=== PATIENT | female | born 1970 | race Caucasian/White ===

== ENCOUNTER 2018-10-30 11:48 | Day surgery (SDC) | payer MEDICARE, MEDICAID ==
--- NOTE | 2018-10-30 07:02 | History and Physical - [facility]ro ---
CHIEF COMPLAINT/HISTORY OF CHIEF COMPLAINT: This patient presents with a history of a post cervical laminectomy radiculopathy. Due to the failure of all therapies, a spinal cord stimulator trial with a Nevro system was performed by Dr. Thompson Che with 75+% pain control. Due to the failure of other therapies and the success of the trial, the patient is being referred to this facility for permanent implant. PAST MEDICAL HISTORY: Headaches, seizure disorder, chronic obstructive pulmonary disease, reflux esophagitis, depression and difficulty sleeping. PAST SURGICAL HISTORY: Extensive including cervical spinal surgeries. EMPLOYMENT STATUS: Disability. MEDICATIONS ON ADMISSION: List to be provided. ALLERGIES: List to be provided. FAMILY/PSYCHOSOCIAL HISTORY: Social history - Noncontributory. Family history - Thyroid disease, asthma, diabetes, coronary artery disease and hypertension. SYSTEMS REVIEW: The patient seems appropriate in no acute distress. PHYSICAL EXAMINATION: Height is 5'9", weight is 200 pounds. No vital signs. HEENT: Within normal limits. LUNGS: Clear. HEART: Rapid and regular. ABDOMEN: Nontender. MUSCULOSKELETAL: Examination of the musculoskeletal system shows diffuse tenderness throughout the cervical spine extending into the trapezius, suprascapular, deltoid and medial rhomboideus muscle groups. There is an upper extremity component somewhat more prominent left than right across multiple distributions and dermatomes. There is pain extending towards the back side of the head consistent with the occipital distribution. Sensory jenkins are intact. NEUROLOGIC: Cranial nerves are intact. IMPRESSION: POST CERVICAL LAMINECTOMY SYNDROME, ICD-10 CODE M96.1 WITH CERVICAL RADICULOPATHY, ICD-10 CODE M54.12. PLAN: The patient is here for an implanted permanent spinal cord stimulator after a successful trial and the failure of all other therapies. The procedure will be considered outpatient although an overnight stay will be evaluated. The potential risks, side effect and complications have all been carefully reviewed and discussed. JOB NUMBER: [id number] [facility]
[~2018-10-30 11:48] MED LIST: ACETAMINOPHEN 1,000 MG/100 ML BTL IV ONE; CEFAZOLIN 2 Gram 2 GM/50 ML BAG IVPB ONE; FAMOTIDINE 20MG TABLET PO ONE; MECLIZINE 25 MG TABLET PO ONE; METOCLOPRAMIDE 10 MG TABLET PO ONE
[2018-10-30] MEDS ORDERED: 0.9 % SODIUM CHLORIDE 10 ML VIAL IVP ONE (11:49)
[2018-10-30] MEDS ORDERED: LIDOCAINE 2% MDV (20MG/ML) 20ML VIAL IV ONE (11:49)
[2018-10-30] MEDS ORDERED: FENTANYL PF 100MCG/2ML VIAL IV ONE (11:49)
[2018-10-30] MEDS ORDERED: CLINDAMYCIN 600MG/50ML PREMIX 600 MG/50 ML BAG IVPB ONE (11:49)
[2018-10-30] MEDS ORDERED: MIDAZOLAM HCL 2MG/2ML VIAL IV ONE (11:49)
[2018-10-30] MEDS ORDERED: CEFAZOLIN 1G VIAL IM ONE (11:49)
[2018-10-30] MEDS ORDERED: HYDROMORPHONE HCL 2 MG/ML VIAL IV ONE (11:49)
[2018-10-30] MEDS ORDERED: PROPOFOL 10 MG/ML VIAL IV ONE (11:49)
[2018-10-30] MEDS ORDERED: BUPIVACAINE 0.5% W/EPI MPF 30 ML VIAL SQ ONE (14:15)
[2018-10-30] MEDS ORDERED: LIDOCAINE 1% W/EPI 1:200,000 MPF 30ML SQ ONE (14:16)
[2018-10-30] MEDS ORDERED: RINGERS SOLUTION,LACTATED 150 ML IV ONE (14:41)
[2018-10-30] MEDS ORDERED: METOCLOPRAMIDE HCL 10 MG/2 ML VIAL IVP PRN (15:17)
[2018-10-30] MEDS ORDERED: DIPHENHYDRAMINE HCL 50 MG/ML VIAL IVP PRN ×2 (15:17)
[2018-10-30] MEDS ORDERED: SENNOSIDES/DOCUSATE SODIUM UD CAPSULE PO PRN ×2 (15:17)
[2018-10-30] MEDS ORDERED: TEMAZEPAM 15 MG CAPSULE PO PRN ×2 (15:17)
[2018-10-30] MEDS ORDERED: OXYCODONE/APAP 10MG-325MG TABLET PO PRN (15:17)
[2018-10-30] MEDS ORDERED: HYDROMORPHONE HCL 2 MG/ML VIAL IM PRN (15:17)
[2018-10-30] MEDS ORDERED: AL HYDROX/MAG HYDROX 30ML UD PO PRN (15:17)
[2018-10-30] MEDS ORDERED: DIPHENHYDRAMINE HCL 25 MG CAPSULE PO PRN ×2 (15:17)
[2018-10-30] MEDS ORDERED: METOCLOPRAMIDE 10 MG TABLET PO PRN (15:17)
[2018-10-30] MEDS ORDERED: HYDROCODONE/APAP 7.5/325MG TABLET PO PRN ×2 (15:17)
[2018-10-30] MEDS ORDERED: ACETAMINOPHEN 325 MG TAB PO PRN ×2 (15:17)
[2018-10-30] MEDS: LORAZEPAM 0.5 MG TABLET PO SCH ×2 (16:37→22:18)
[2018-10-30] MEDS: OXYCODONE/APAP 10MG-325MG TABLET PO PRN (21:19)
[2018-10-30] MEDS: CLINDAMYCIN 600MG/50ML PREMIX 600 MG/50 ML BAG IVPB SCH (21:36)
[2018-10-30] MEDS ORDERED: GABAPENTIN 300 MG CAPSULE PO SCH (22:00)
[2018-10-30] MEDS ORDERED: GABAPENTIN 100 MG CAPSULE PO SCH (22:00)
[2018-10-30] MEDS ORDERED: LAMOTRIGINE 100 MG TABLET PO SCH (22:00)
[2018-10-30] MEDS ORDERED: 0.9 % SODIUM CHLORIDE 10ML SYR IVP SCH (22:00)
[2018-10-30] MEDS ORDERED: DULOXETINE HCL 30 MG CAPSULE.DR PO SCH (22:00)
[2018-10-30] MEDS: LITHIUM CARBONATE 300 MG PO SCH (22:16)
[2018-10-30] MEDS: TOPIRAMATE 100MG TABLET PO SCH (22:17)
[2018-10-30] MEDS: HYDROMORPHONE HCL 2 MG/ML VIAL IM PRN (22:57)
[2018-10-31] MEDS: OXYCODONE/APAP 10MG-325MG TABLET PO PRN ×3 (03:30→11:22)
[2018-10-31] MEDS: HYDROMORPHONE HCL 2 MG/ML VIAL IM PRN (04:23)
[2018-10-31] MEDS: CLINDAMYCIN 600MG/50ML PREMIX 600 MG/50 ML BAG IVPB SCH (04:27)
[2018-10-31] MEDS: LORAZEPAM 0.5 MG TABLET PO SCH (09:51)
[2018-10-31] MEDS: LITHIUM CARBONATE 300 MG PO SCH (09:52)
[2018-10-31] MEDS: TOPIRAMATE 100MG TABLET PO SCH (09:52)
[2018-10-31] MEDS ORDERED: LAMOTRIGINE 100 MG TABLET PO SCH (10:00)
--- NOTE | 2018-10-31 20:55 | Operative Note ---
DATE OF SURGERY: 10/30/2018 PREOPERATIVE DIAGNOSES: POST CERVICAL LAMINECTOMY SYNDROME, ICD-10 CODE = M96.1 WITH CERVICAL RADICULOPATHY, ICD-10 CODE = M54.12. POSTOPERATIVE DIAGNOSES: POST CERVICAL LAMINECTOMY SYNDROME, ICD-10 CODE = M96.1 WITH CERVICAL RADICULOPATHY, ICD-10 CODE = M54.12. SURGERY: 1. FLUOROSCOPIC-GUIDED EPIDURAL ACCESS LEFT T1-2, PLACEMENT OF SPINAL CORD STIMULATOR LEAD 1, A NEVRO OCTOAPOLAR 8 ELECTRODE LEAD POSITIONED LEFT OF THE MIDLINE C2. 2. FLUOROSCOPIC-GUIDED EPIDURAL ACCESS LEFT T2-3, PLACEMENT OF SPINAL CORD STIMULATOR LEAD 2, A NEVRO OCTAPOLAR 8 ELECTRODES POSITIONED RIGHT C3. 3. INCISION, SUBCUTANEOUS DISSECTION, AND ANCHORING OF LEAD 1 AND LEAD 2 TO SUPRASPINOUS FASCIA USING A NEVRO LOCKING ANCHOR AND NONABSORBABLE SUTURE. 4. INCISION, SUBCUTANEOUS DISSECTION, AND CREATION OF SUBCUTANEOUS POUCH AT RIGHT POSTERIOR GLUTEAL MARGIN FOR PLACEMENT OF GENERATOR IDENTIFIED NEVRO PROGRAMMABLE, RECHARGEABLE. 5. TUNNELING OF LEAD 1 AND LEAD 2 INTO GENERATOR POUCH, EACH LEAD INTERFACED WITH THE GENERATOR, PLACEMENT OF LEADS INTO POUCH. CLOSURE OF BOTH INCISIONS USING STRATAFIX SUTURE, #2-0 FASCIA AND #3-0 SKIN, DERMABOND CLOSURE. 6. COMPLEX RECOVERY ROOM PROGRAMMING INTERNAL GENERATOR HOME USE, TWO STIMULATORS, 20 MINUTES. SURGEON: MICHELLE BEE D.O. PRIMARY PHYSICIANS: DR. MODESTA CHE, DR. TEOFILO LILLY ANESTHESIA: LOCAL SEDATION. ANESTHESIA PROVIDER: GANGA RAPP CRNA. INDICATIONS: This patient presents with a history of an intractable post cervical laminectomy radiculopathy. Due to the failure of all therapies, a spinal cord stimulator trial was conducted by Dr. Modesta Che with 75%+ pain control. Due to the failure of therapies and the success of the trial, she has been referred here for a permanent implant. SURGERY: Intravenous line, vital sign monitoring, IV sedation by Anesthesia, patient positioned prone. Sterile prep. Sterile technique. The epidural interspace at T1-2 and T2-3 were marked, skin infiltrated. Using standard epidural needles with loss of resistance, the space was accessed. Atraumatic, no blood, no CSF. At T1-2, spinal cord stimulator lead 1, a Nevro Octapolar 8 electrode was advanced slightly left of the midline, upper electrodes at the upper endplate C2. With the access at T2-3, same technique, spinal cord stimulator lead 2, also a Nevro Octapolar 8 electrodes was advanced slightly right of the midline positioned to offset with the upper electrode at the upper endplate C3. The skin above and below both needles was infiltrated, incision made, and subcutaneous dissection was conducted to the supraspinous fascia. The needles were removed and then each lead was anchored to the supraspinous fascia with a Nevro locking anchor and nonabsorbable suture. At the right posterior gluteal margin, a site picked by the patient for the generator, skin infiltrated , incision made, and subcutaneous dissection was conducted to form a pouch of suitable size and depth for the generator, a Nevro programmable, rechargeable. A tunneling tool was then used to carry the leads into the generator pouch and each each lead was interfaced with the generator. Antibiotic irrigation and Bovie for hemostasis. The generator was placed into the pouch. The leads were placed into their own pouch and then both incisions were closed using STRATAFIX suture, #2-0 fascia and #3-0 skin. Dermabond closure approximating the edges of both wounds. She was transported to the Recovery Room stable, no side effects from the procedure or the sedation. When fully awake and alert in the Recovery Room, complex programming was performed reestablishing stimulation She will be kept overnight for observation because of the distance to drive and will be discharged in the morning. DISCHARGE INSTRUCTIONS: 1. The sites will remain clean and dry. The Dermabond will allow showering. She should not sit in water, no tubs, but she can shower. 2. Standard medications will be resumed including the antibiotic, Levaquin. She will take 500 mg once a day for 14 days. 3. The office will contact the patient in the next 24 to 48 hours to set up a time in 7 to 10 days for us to see the sites. Until then, she is to keep her activities controlled. All other instructions provided, numbers to contact if problems given. She will be discharged in the morning. cc: Dr. Jeremiah Che and Dr. Teofilo Lilly JOB NUMBER: [id number] MTDD
--- NOTE | 2018-11-01 09:46 | RADIOLOGY REPORT ---
EXAM: CERVICOTHORACIC SPINE, SINGLE VIEW HISTORY: SPINAL CORD STIMULATOR PLACEMENT. TECHNIQUE: A single AP view of the cervicothoracic spine was performed. Comparison: Intraoperative views from the same date. FINDINGS: The electrical stimulator leads are in place extending to the C1-C2 level. No complicating features are identified. There are no acute osseous abnormalities. IMPRESSION: SPINAL STIMULATOR LEADS IN PLACE EXTENDING TO THE C1-C2 LEVEL. JOB NUMBER: [id number] MTDD
== END 2018-10-31 11:40 | disposition home or self-care (01) ==
LOC: SUR 11:48 → MEDSURG 15:15 → SUR 10-31 11:40
PROVIDERS: ATTEND Pain Medicine Interventional Pain Medicine
DX: M96.1 Postlaminectomy syndrome, not elsewhere classified (principal); M54.12 Radiculopathy, cervical region; G40.909 Epilepsy, unspecified, not intractable, without status epilepticus; F31.9 Bipolar disorder, unspecified; G40.409 Other generalized epilepsy and epileptic syndromes, not intractable, without status epilepticus; F11.21 Opioid dependence, in remission; F12.90 Cannabis use, unspecified, uncomplicated
CPT/HCPCS: 63650; 63685; 01936; 95972; 72020; J3010; J1170 ×2; J0690; J3490 ×2; C1778; C1787; C1820; J7120